=== PATIENT | male | born 1950 | race Caucasian/White ===

== ENCOUNTER → 2018-03-10 | Outpatient (CLI) | payer MEDICARE | LOC: M.WC 13:30 | DX: I70.233 Atherosclerosis of native arteries of right leg with ulceration of ankle (principal); L97.311 Non-pressure chronic ulcer of right ankle limited to breakdown of skin; I70.235 Atherosclerosis of native arteries of right leg with ulceration of other part of foot; L97.511 Non-pressure chronic ulcer of other part of right foot limited to breakdown of skin; I70.243 Atherosclerosis of native arteries of left leg with ulceration of ankle; L97.321 Non-pressure chronic ulcer of left ankle limited to breakdown of skin; I70.245 Atherosclerosis of native arteries of left leg with ulceration of other part of foot; L97.521 Non-pressure chronic ulcer of other part of left foot limited to breakdown of skin; I87.2 Venous insufficiency (chronic) (peripheral); J44.9 Chronic obstructive pulmonary disease, unspecified; M06.9 Rheumatoid arthritis, unspecified; F17.200 Nicotine dependence, unspecified, uncomplicated ==

== ENCOUNTER → 2018-03-17 | Outpatient (CLI) | payer MEDICARE | LOC: M.WC 05:44 | DX: I70.235 Atherosclerosis of native arteries of right leg with ulceration of other part of foot (principal); L97.511 Non-pressure chronic ulcer of other part of right foot limited to breakdown of skin; I70.233 Atherosclerosis of native arteries of right leg with ulceration of ankle; L97.311 Non-pressure chronic ulcer of right ankle limited to breakdown of skin; I70.243 Atherosclerosis of native arteries of left leg with ulceration of ankle; L97.321 Non-pressure chronic ulcer of left ankle limited to breakdown of skin; I70.245 Atherosclerosis of native arteries of left leg with ulceration of other part of foot; L97.521 Non-pressure chronic ulcer of other part of left foot limited to breakdown of skin; I87.2 Venous insufficiency (chronic) (peripheral); E66.9 Obesity, unspecified; J44.9 Chronic obstructive pulmonary disease, unspecified; M06.9 Rheumatoid arthritis, unspecified; F17.200 Nicotine dependence, unspecified, uncomplicated; Z68.23 Body mass index [BMI] 23.0-23.9, adult ==

== ENCOUNTER → 2018-03-24 | Outpatient (CLI) | payer MEDICARE | LOC: M.WC 04:28 | DX: I70.235 Atherosclerosis of native arteries of right leg with ulceration of other part of foot (principal); L97.511 Non-pressure chronic ulcer of other part of right foot limited to breakdown of skin; I70.233 Atherosclerosis of native arteries of right leg with ulceration of ankle; L97.311 Non-pressure chronic ulcer of right ankle limited to breakdown of skin; I70.243 Atherosclerosis of native arteries of left leg with ulceration of ankle; L97.321 Non-pressure chronic ulcer of left ankle limited to breakdown of skin; I70.245 Atherosclerosis of native arteries of left leg with ulceration of other part of foot; L97.521 Non-pressure chronic ulcer of other part of left foot limited to breakdown of skin; E66.9 Obesity, unspecified; I87.2 Venous insufficiency (chronic) (peripheral); J44.9 Chronic obstructive pulmonary disease, unspecified; M06.9 Rheumatoid arthritis, unspecified; F17.200 Nicotine dependence, unspecified, uncomplicated; Z68.23 Body mass index [BMI] 23.0-23.9, adult ==

== ENCOUNTER → 2018-03-29 | Outpatient (CLI) | payer MEDICARE | LOC: M.ULTRA 12:45 | DX: S91.302A Unspecified open wound, left foot, initial encounter (principal); S91.301A Unspecified open wound, right foot, initial encounter; I73.9 Peripheral vascular disease, unspecified; X58.XXXA Exposure to other specified factors, initial encounter; Y93.89 Activity, other specified; Y92.89 Other specified places as the place of occurrence of the external cause; Y99.8 Other external cause status ==

== ENCOUNTER → 2018-03-31 | Outpatient (CLI) | payer MEDICARE | LOC: M.WC 03:03 | DX: I70.235 Atherosclerosis of native arteries of right leg with ulceration of other part of foot (principal); L97.511 Non-pressure chronic ulcer of other part of right foot limited to breakdown of skin; I70.233 Atherosclerosis of native arteries of right leg with ulceration of ankle; L97.311 Non-pressure chronic ulcer of right ankle limited to breakdown of skin; I70.243 Atherosclerosis of native arteries of left leg with ulceration of ankle; L97.321 Non-pressure chronic ulcer of left ankle limited to breakdown of skin; I70.245 Atherosclerosis of native arteries of left leg with ulceration of other part of foot; L97.521 Non-pressure chronic ulcer of other part of left foot limited to breakdown of skin; I87.2 Venous insufficiency (chronic) (peripheral); F17.200 Nicotine dependence, unspecified, uncomplicated; J44.9 Chronic obstructive pulmonary disease, unspecified; M06.9 Rheumatoid arthritis, unspecified ==

== ENCOUNTER → 2018-04-02 | Outpatient (CLI) | payer MEDICARE | LOC: M.WC 03:45 | DX: I70.245 Atherosclerosis of native arteries of left leg with ulceration of other part of foot (principal); L97.521 Non-pressure chronic ulcer of other part of left foot limited to breakdown of skin; I70.243 Atherosclerosis of native arteries of left leg with ulceration of ankle; L97.321 Non-pressure chronic ulcer of left ankle limited to breakdown of skin; I70.233 Atherosclerosis of native arteries of right leg with ulceration of ankle; L97.311 Non-pressure chronic ulcer of right ankle limited to breakdown of skin; I87.2 Venous insufficiency (chronic) (peripheral); J44.9 Chronic obstructive pulmonary disease, unspecified; M06.9 Rheumatoid arthritis, unspecified; F17.200 Nicotine dependence, unspecified, uncomplicated ==

== ENCOUNTER → 2018-04-07 | Outpatient (CLI) | payer MEDICARE | LOC: M.WC 03:12 | DX: I70.235 Atherosclerosis of native arteries of right leg with ulceration of other part of foot (principal); L97.511 Non-pressure chronic ulcer of other part of right foot limited to breakdown of skin; I70.233 Atherosclerosis of native arteries of right leg with ulceration of ankle; L97.311 Non-pressure chronic ulcer of right ankle limited to breakdown of skin; I70.243 Atherosclerosis of native arteries of left leg with ulceration of ankle; L97.321 Non-pressure chronic ulcer of left ankle limited to breakdown of skin; I70.245 Atherosclerosis of native arteries of left leg with ulceration of other part of foot; L97.521 Non-pressure chronic ulcer of other part of left foot limited to breakdown of skin; E66.9 Obesity, unspecified; I87.2 Venous insufficiency (chronic) (peripheral); J44.9 Chronic obstructive pulmonary disease, unspecified; M06.9 Rheumatoid arthritis, unspecified; F17.200 Nicotine dependence, unspecified, uncomplicated; Z68.23 Body mass index [BMI] 23.0-23.9, adult ==

== ENCOUNTER → 2018-04-14 | Outpatient (CLI) | payer MEDICARE | LOC: M.WC 05:06 | DX: I70.235 Atherosclerosis of native arteries of right leg with ulceration of other part of foot (principal); L97.511 Non-pressure chronic ulcer of other part of right foot limited to breakdown of skin; I70.233 Atherosclerosis of native arteries of right leg with ulceration of ankle; L97.311 Non-pressure chronic ulcer of right ankle limited to breakdown of skin; I70.243 Atherosclerosis of native arteries of left leg with ulceration of ankle; L97.321 Non-pressure chronic ulcer of left ankle limited to breakdown of skin; I70.245 Atherosclerosis of native arteries of left leg with ulceration of other part of foot; L97.521 Non-pressure chronic ulcer of other part of left foot limited to breakdown of skin; I87.2 Venous insufficiency (chronic) (peripheral); E66.9 Obesity, unspecified; J44.9 Chronic obstructive pulmonary disease, unspecified; M06.9 Rheumatoid arthritis, unspecified; F17.200 Nicotine dependence, unspecified, uncomplicated; Z68.23 Body mass index [BMI] 23.0-23.9, adult ==

== ENCOUNTER → 2018-04-19 | Outpatient (CLI) | payer MEDICARE | LOC: M.WC 01:02 | DX: I70.233 Atherosclerosis of native arteries of right leg with ulceration of ankle (principal); L97.311 Non-pressure chronic ulcer of right ankle limited to breakdown of skin; I70.235 Atherosclerosis of native arteries of right leg with ulceration of other part of foot; L97.518 Non-pressure chronic ulcer of other part of right foot with other specified severity; I70.243 Atherosclerosis of native arteries of left leg with ulceration of ankle; L97.321 Non-pressure chronic ulcer of left ankle limited to breakdown of skin; I70.245 Atherosclerosis of native arteries of left leg with ulceration of other part of foot; L97.521 Non-pressure chronic ulcer of other part of left foot limited to breakdown of skin; I87.2 Venous insufficiency (chronic) (peripheral); E66.9 Obesity, unspecified; J44.9 Chronic obstructive pulmonary disease, unspecified; M06.9 Rheumatoid arthritis, unspecified; F17.200 Nicotine dependence, unspecified, uncomplicated; Z68.23 Body mass index [BMI] 23.0-23.9, adult ==

== ENCOUNTER → 2018-04-21 | Outpatient (CLI) | payer MEDICARE | LOC: M.WC 05:06 | DX: I70.245 Atherosclerosis of native arteries of left leg with ulceration of other part of foot (principal); L97.521 Non-pressure chronic ulcer of other part of left foot limited to breakdown of skin; L89.892 Pressure ulcer of other site, stage 2; I70.243 Atherosclerosis of native arteries of left leg with ulceration of ankle; L97.321 Non-pressure chronic ulcer of left ankle limited to breakdown of skin; I70.233 Atherosclerosis of native arteries of right leg with ulceration of ankle; L97.311 Non-pressure chronic ulcer of right ankle limited to breakdown of skin; I87.2 Venous insufficiency (chronic) (peripheral); E66.9 Obesity, unspecified; Z68.23 Body mass index [BMI] 23.0-23.9, adult ==

== ENCOUNTER → 2018-04-28 | Outpatient (CLI) | payer MEDICARE | LOC: M.WC 03:23 | DX: I70.243 Atherosclerosis of native arteries of left leg with ulceration of ankle (principal); L97.321 Non-pressure chronic ulcer of left ankle limited to breakdown of skin; I70.233 Atherosclerosis of native arteries of right leg with ulceration of ankle; L97.311 Non-pressure chronic ulcer of right ankle limited to breakdown of skin; I70.245 Atherosclerosis of native arteries of left leg with ulceration of other part of foot; L97.521 Non-pressure chronic ulcer of other part of left foot limited to breakdown of skin; I70.235 Atherosclerosis of native arteries of right leg with ulceration of other part of foot; L97.511 Non-pressure chronic ulcer of other part of right foot limited to breakdown of skin; L89.893 Pressure ulcer of other site, stage 3; I87.2 Venous insufficiency (chronic) (peripheral); E66.9 Obesity, unspecified; J44.9 Chronic obstructive pulmonary disease, unspecified; M06.9 Rheumatoid arthritis, unspecified; Z68.23 Body mass index [BMI] 23.0-23.9, adult ==

== ENCOUNTER → 2018-05-05 | Outpatient (CLI) | payer MEDICARE | LOC: M.WC 04:34 | DX: I70.233 Atherosclerosis of native arteries of right leg with ulceration of ankle (principal); L97.311 Non-pressure chronic ulcer of right ankle limited to breakdown of skin; I70.243 Atherosclerosis of native arteries of left leg with ulceration of ankle; L97.321 Non-pressure chronic ulcer of left ankle limited to breakdown of skin; I70.245 Atherosclerosis of native arteries of left leg with ulceration of other part of foot; L97.521 Non-pressure chronic ulcer of other part of left foot limited to breakdown of skin; L89.893 Pressure ulcer of other site, stage 3; I87.2 Venous insufficiency (chronic) (peripheral); J44.9 Chronic obstructive pulmonary disease, unspecified; M06.9 Rheumatoid arthritis, unspecified; F17.200 Nicotine dependence, unspecified, uncomplicated ==

== ENCOUNTER → 2018-05-12 | Outpatient (CLI) | payer MEDICARE | LOC: M.WC 02:51 | DX: I70.233 Atherosclerosis of native arteries of right leg with ulceration of ankle (principal); L97.311 Non-pressure chronic ulcer of right ankle limited to breakdown of skin; I70.243 Atherosclerosis of native arteries of left leg with ulceration of ankle; L97.321 Non-pressure chronic ulcer of left ankle limited to breakdown of skin; I70.245 Atherosclerosis of native arteries of left leg with ulceration of other part of foot; L97.521 Non-pressure chronic ulcer of other part of left foot limited to breakdown of skin; L89.893 Pressure ulcer of other site, stage 3; E66.9 Obesity, unspecified; I87.2 Venous insufficiency (chronic) (peripheral); J44.9 Chronic obstructive pulmonary disease, unspecified; M06.9 Rheumatoid arthritis, unspecified; F17.200 Nicotine dependence, unspecified, uncomplicated; Z68.23 Body mass index [BMI] 23.0-23.9, adult ==

== ENCOUNTER → 2018-05-19 | Outpatient (CLI) | payer MEDICARE | LOC: M.WC 04:42 | DX: I70.245 Atherosclerosis of native arteries of left leg with ulceration of other part of foot (principal); L97.521 Non-pressure chronic ulcer of other part of left foot limited to breakdown of skin; I70.243 Atherosclerosis of native arteries of left leg with ulceration of ankle; L97.321 Non-pressure chronic ulcer of left ankle limited to breakdown of skin; I70.233 Atherosclerosis of native arteries of right leg with ulceration of ankle; L97.311 Non-pressure chronic ulcer of right ankle limited to breakdown of skin; L89.892 Pressure ulcer of other site, stage 2; I87.2 Venous insufficiency (chronic) (peripheral); J44.9 Chronic obstructive pulmonary disease, unspecified; M06.9 Rheumatoid arthritis, unspecified; F17.200 Nicotine dependence, unspecified, uncomplicated ==

== ENCOUNTER → 2018-06-02 | Outpatient (CLI) | payer MEDICARE | LOC: M.WC 05-26 01:55 | DX: I70.233 Atherosclerosis of native arteries of right leg with ulceration of ankle (principal); L97.311 Non-pressure chronic ulcer of right ankle limited to breakdown of skin; I70.243 Atherosclerosis of native arteries of left leg with ulceration of ankle; L97.322 Non-pressure chronic ulcer of left ankle with fat layer exposed; I70.245 Atherosclerosis of native arteries of left leg with ulceration of other part of foot; L97.522 Non-pressure chronic ulcer of other part of left foot with fat layer exposed; L89.893 Pressure ulcer of other site, stage 3; L97.511 Non-pressure chronic ulcer of other part of right foot limited to breakdown of skin; E66.9 Obesity, unspecified; I87.2 Venous insufficiency (chronic) (peripheral); J44.9 Chronic obstructive pulmonary disease, unspecified; M06.9 Rheumatoid arthritis, unspecified; F17.200 Nicotine dependence, unspecified, uncomplicated; Z68.23 Body mass index [BMI] 23.0-23.9, adult ==

== ENCOUNTER → 2018-06-11 | Day surgery (SDC) | payer MEDICARE, MEDICAID ==
[~2018-06-11] VITALS: Ht 180.3 cm; Wt 88.9 kg
[~2018-06-11] MED LIST: ACCUNEB SO1.25 MG/1 INH; ATORVASTATIN CA40 MG PO; IBUPROFEN 800800 M1 PO; METHOTREXATE 22.5 MG PO; MINOCYCLINE HC100 M2 PO; NEURONTIN600 MG PO; NORCO 5-325 TA1 EACH PO; SYNTHROID25 MC1 PO; TRIAMTERENE-HC1 EAC3 PO; VENTOLIN HFA 1818 GM INH; WELLBUTRIN 75 M75 M1 PO
[2018-06-11 12:19] LABS: ABSOLUTE BASOPHILS 0.1 thou/uL (0.0-0.2); ABSOLUTE EOSINOPHILS 0.7 thou/uL (0.0-0.7); ABSOLUTE MONOCYTES 0.3 thou/uL (0.0-1.2); ABSOLUTE NEUTROPHILS 5.8 thou/uL (1.6-8.1); EOSINOPHILS 9.1 %; HEMATOCRIT 27.8 % (42.0-52.0); HEMOGLOBIN 8.7 gm/dL (14.0-18.0); LYMPHOCYTES 12.7 %; MCH 23.8 pg (26.0-34.0); MCHC 31.3 g/dL (28.0-37.0); MCV 76.1 fL (80.0-100.0); MONOCYTES 4.1 %; MPV 7.4 fl. (7.2-11.1); NUCLEATED RBCS 0 /100WBC; PLATELET COUNT* 242 thou/uL (150-400); POLYS 73.1 %; RBC 3.66 mil/uL (4.50-6.00); RDW-CV 26.1 % (10.5-14.5)
[2018-06-11 12:29] LABS: CALCIUM 8.3 mg/dL (8.5-10.1); CREATININE 1.3 mg/dL (0.6-1.3); POTASSIUM 3.9 mmol/L (3.5-5.1)
[2018-06-11 12:37] VITALS: BP 113/67
[2018-06-11 12:37] LABS: ANISOCYTOSIS 2+; OVALOCYTES 1+; TARGET CELLS 1+
[2018-06-11 14:15] VITALS: BP 113/67
--- NOTE | 2018-06-11 14:25 | OP ---
[facility] [address] [place] [address] OPERATIVE REPORT Name: SUGAR JAIME Room: [facility]#: [id number] Admission: 06/11/18 Attend Phys: Galo Segura DO Discharge: Date of : 46 Report #: [id number] THIS REPORT FOR: //name// CC: Galo MOJICA unknown DATE OF SERVICE: 06/11/2018 PREOPERATIVE DIAGNOSIS: Bilateral lower extremity venous insufficiency with venous ulcerations. POSTOPERATIVE DIAGNOSIS: Bilateral lower extremity venous insufficiency with venous ulcerations. PROCEDURE: Excisional debridement of the bilateral lower extremity wounds down to and including subcutaneous tissue, greater than 20 cm2 in total. SURGEON: Galo Segura DO. MEDICAL IMAGING TECH: None. ANESTHESIA: LMA. ESTIMATED BLOOD LOSS: 25 mL. FLUIDS: Less than 100 crystalloid. URINE OUTPUT: None. SPECIMENS: None. COMPLICATIONS: None. FINDINGS: The patient has had significant bilateral lower extremity venous wounds that are covered with significant amount of bioburden slough. Skin was pretty macerated. Thus, they cleaned up well down to good healthy bleeding tissue. This was tolerated well. CLINICAL HISTORY: The patient is a 68-year-old man with known venous insufficiency with nonhealing bilateral lower extremity wounds. He could not tolerate debridement [facility] and was recommended to be taken to the OR for debridement. DETAILS OF PROCEDURE: After informed consent was obtained, the patient taken to the operating room and placed on the OR by the supine position. He was administered LMA anesthesia by anesthesia team. The bilateral lower extremities [address] [address] OPERATIVE REPORT Name: YENISUGAR E Room: [facility]#: [id number] Admission: 06/11/18 Attend Phys: Galo Segura DO Discharge: Date of : 46 Report #: [id number] were prepped and draped in the usual sterile fashion. Full timeout performed identifying correct patient and procedure. Next, using a curette, first the right medial malleolar wound that measured 1 x 1 cm in diameter was debrided of fibrinous debris and slough down to and including subcutaneous tissue. The right first and second toe wounds measured about 1 x 2.5 cm in length was again debrided with a curette down to and including subcutaneous tissues, debrided all the fibrinous debris and slough. I then turned my attention to the left ankle. The medial wound measured about 3.5 x 2.5, again used curette to debride down to and including subcutaneous tissues, the fibrinous debris and slough. The left first, second and third toe wounds in total measured about 3.5 x 2 cm in dimension. Again debrided this down to and including subcutaneous tissues, debrided the fibrinous debris and slough and then turned my attention to the lateral ankle wound, left ankle wound that measured about again 2.5 x 3.5, again debrided this fibrinous debris and slough down to and including subcutaneous tissue with a curette as well. There is excellent bleeding noted. This was controlled with direct pressure. The wounds looked much improved post-debridement. The wounds were then cleansed with saline solution. The wounds were dressed with Aquacel, 4 x 4s, ABD, Kerlix and Andrew wraps. He tolerated the procedure well and transferred to recovery in stable condition. <ELECTRONICALLY SIGNED> By: Galo Segura DO 06/11/18 1425 1340 [id number] Segura DO /nt
--- NOTE | 2018-06-11 15:51 | EKG ---
[place] [address] ELECTROCARDIOGRAM REPORT Name: SUGAR JAIME Room: [employer]#: [id number] Admission: 06/11/18 Attend Phys: Galo Segura DO Discharge: Date of : 46 Report #: [id number] THIS REPORT FOR: //name// [facility] Test Date: 2018-06-11 Test Time: 12:04:57 Pat Name: SUGAR JAIME Department: Room: Gender: [employer] Project Manager: : 1950 Requested By: Galo Segura Order Number: [id number] Audrey MD: Jorge Stephenson Measurements Intervals [place] Rate: 79 P: -18 MO: 149 QRS: 6 QRSD: 91 T: 27 QT: 402 QTc: 461 Interpretive Statements Sinus rhythm Borderline low voltage, extremity leads No previous ECG available for comparison Electronically Signed On 06-11-2018 15:50:57 [employer] by Jorge Stephenson [email or web address] <ELECTRONICALLY SIGNED> By: Jorge Stephenson MD, [facility] 06/11/18 1550 1204 1204 Jorge Stephenson MD, FACC /EPI
== END | disposition home or self-care (01) ==
LOC: M.SUR
PROVIDERS: Surgery
DX: I87.2 Venous insufficiency (chronic) (peripheral) (principal); L97.529 Non-pressure chronic ulcer of other part of left foot with unspecified severity; L97.819 Non-pressure chronic ulcer of other part of right lower leg with unspecified severity; Z98.890 Other specified postprocedural states; Z88.8 Allergy status to other drugs, medicaments and biological substances; Z79.899 Other long term (current) drug therapy

== ENCOUNTER → 2018-06-16 | Outpatient (CLI) | payer MEDICARE | LOC: M.WC 06-09 10:00 | DX: I70.233 Atherosclerosis of native arteries of right leg with ulceration of ankle (principal); L97.312 Non-pressure chronic ulcer of right ankle with fat layer exposed; I70.243 Atherosclerosis of native arteries of left leg with ulceration of ankle; L97.322 Non-pressure chronic ulcer of left ankle with fat layer exposed; I70.245 Atherosclerosis of native arteries of left leg with ulceration of other part of foot; L97.522 Non-pressure chronic ulcer of other part of left foot with fat layer exposed; L89.893 Pressure ulcer of other site, stage 3; L97.512 Non-pressure chronic ulcer of other part of right foot with fat layer exposed; I87.2 Venous insufficiency (chronic) (peripheral); E66.9 Obesity, unspecified; M06.9 Rheumatoid arthritis, unspecified; J44.9 Chronic obstructive pulmonary disease, unspecified; F17.200 Nicotine dependence, unspecified, uncomplicated; Z68.23 Body mass index [BMI] 23.0-23.9, adult ==

== ENCOUNTER → 2018-06-23 | Outpatient (CLI) | payer MEDICARE | LOC: M.WC 04:55 | DX: I70.233 Atherosclerosis of native arteries of right leg with ulceration of ankle (principal); L97.312 Non-pressure chronic ulcer of right ankle with fat layer exposed; I70.243 Atherosclerosis of native arteries of left leg with ulceration of ankle; L97.322 Non-pressure chronic ulcer of left ankle with fat layer exposed; I70.245 Atherosclerosis of native arteries of left leg with ulceration of other part of foot; L97.522 Non-pressure chronic ulcer of other part of left foot with fat layer exposed; L97.512 Non-pressure chronic ulcer of other part of right foot with fat layer exposed; L89.893 Pressure ulcer of other site, stage 3; E66.9 Obesity, unspecified; I87.2 Venous insufficiency (chronic) (peripheral); J44.9 Chronic obstructive pulmonary disease, unspecified; M06.9 Rheumatoid arthritis, unspecified; F17.200 Nicotine dependence, unspecified, uncomplicated; Z68.23 Body mass index [BMI] 23.0-23.9, adult ==

== ENCOUNTER → 2018-08-16 | Outpatient (CLI) | payer MEDICARE | LOC: M.WC 10:00 | DX: L97.511 Non-pressure chronic ulcer of other part of right foot limited to breakdown of skin (principal); L97.311 Non-pressure chronic ulcer of right ankle limited to breakdown of skin; L97.521 Non-pressure chronic ulcer of other part of left foot limited to breakdown of skin; L97.321 Non-pressure chronic ulcer of left ankle limited to breakdown of skin; I87.2 Venous insufficiency (chronic) (peripheral); I73.9 Peripheral vascular disease, unspecified; J44.9 Chronic obstructive pulmonary disease, unspecified; M06.9 Rheumatoid arthritis, unspecified; F17.200 Nicotine dependence, unspecified, uncomplicated ==

== ENCOUNTER → 2018-08-23 | Outpatient (CLI) | payer MEDICARE | LOC: M.WC 01:07 | DX: L97.511 Non-pressure chronic ulcer of other part of right foot limited to breakdown of skin (principal); L97.311 Non-pressure chronic ulcer of right ankle limited to breakdown of skin; L97.521 Non-pressure chronic ulcer of other part of left foot limited to breakdown of skin; L97.321 Non-pressure chronic ulcer of left ankle limited to breakdown of skin; I87.2 Venous insufficiency (chronic) (peripheral); I73.9 Peripheral vascular disease, unspecified; J44.9 Chronic obstructive pulmonary disease, unspecified; M06.9 Rheumatoid arthritis, unspecified; F17.200 Nicotine dependence, unspecified, uncomplicated ==

== ENCOUNTER 2018-08-30 12:15 | Inpatient (IN) | payer MEDICARE, MEDICAID ==
[~2018-08-30] VITALS: Ht 182.9 cm; Wt 73.9 kg
[~2018-08-30 12:15] MED LIST changes: -IRON325 M1 PO; -ZYLOPRIM300 MG PO
[2018-08-30 16:38] VITALS: BP 137/68
[2018-08-30 18:05] LABS: HEMATOCRIT 33.8 % (42.0-52.0); HEMOGLOBIN 10.3 gm/dL (14.0-18.0); MCH 23.8 pg (26.0-34.0); MCHC 30.6 g/dL (28.0-37.0); MPV 8.1 fl. (7.2-11.1); RBC 4.34 mil/uL (4.50-6.00); RDW-CV 23.8 % (10.5-14.5); WBC 11.8 thou/uL (4.0-11.0)
[2018-08-30 18:15] LABS: INR 1.1; PROTIME 11.6 Seconds (9.20-11.50)
[2018-08-30 18:24] LABS: ALBUMIN 2.5 g/dL (3.4-5.0); CALCIUM 9.1 mg/dL (8.5-10.1); CREATININE 1.9 mg/dL (0.6-1.3); POTASSIUM 3.2 mmol/L (3.5-5.1); TOTAL BILIRUBIN 0.3 mg/dL (<0.1-1.0); TOTAL PROTEIN 8.2 g/dL (6.4-8.2)
[2018-08-30] MEDS ORDERED: ZYLOPRIM300 MG PO (19:09)
[2018-08-31] VITALS: BP 132/73
[2018-08-31 04:27] LABS: ABSOLUTE BASOPHILS 0.1 thou/uL (0.0-0.2); ABSOLUTE EOSINOPHILS 0.1 thou/uL (0.0-0.7); ABSOLUTE LYMPHOCYTES 1.4 thou/uL (0.8-5.3); BASOPHILS 0.9 %; EOSINOPHILS 1.3 %; HEMATOCRIT 30.7 % (42.0-52.0); HEMOGLOBIN 9.3 gm/dL (14.0-18.0); LYMPHOCYTES 14.3 %; MCH 23.4 pg (26.0-34.0); MCHC 30.3 g/dL (28.0-37.0); MCV 77.3 fL (80.0-100.0); MONOCYTES 10.3 %; MPV 8.4 fl. (7.2-11.1); NUCLEATED RBCS 0 /100WBC; PLATELET COUNT* 335 thou/uL (150-400); POLYS 73.2 %; RBC 3.97 mil/uL (4.50-6.00); RDW-CV 23.2 % (10.5-14.5); WBC 9.6 thou/uL (4.0-11.0)
[2018-08-31 04:38] LABS: CALCIUM 8.5 mg/dL (8.5-10.1); CREATININE 1.7 mg/dL (0.6-1.3); MAGNESIUM 1.8 mg/dL (1.8-2.4)
[2018-08-31 04:59] LABS: POTASSIUM 4.5 mmol/L (3.5-5.1)
[2018-08-31 06:57] LABS: ANISOCYTOSIS 2+; HYPOCHROMASIA 1+
[2018-08-31 07:32] VITALS: BP 115/63
[2018-08-31 08:00] VITALS: BP 115/63
[2018-08-31 12:06] VITALS: BP 111/68
--- NOTE | 2018-08-31 12:07 | 2DMMODE ---
[place] [address] 2 D/M-MODE ECHOCARDIOGRAM Name: SUGAR JAIME Room: [address] IN [facility]#: [id number] Admission: 08/30/18 Attend Phys: Beto Roman, Discharge: Date of : 46 Date of Service: 08/31/18 1207 Report #: [id number] THIS REPORT FOR: //name// APPROVED REPORT Study performed: 08/31/2018 10:53:06 EXAM: Comprehensive 2D, Doppler, and color-flow Echocardiogram Patient Location: In-Patient Room #: [facility] Status: routine BSA: 1.95 HR: 79 bpm BP: 115/63 mmHg Rhythm: NSR Other Information Technically limited study due to poor parasternal windows. Indications Congestive Heart Failure Volumes Left Atrial Volume (Systole) LA ESV Index: 14.40 mL/m2 Aortic Valve AoV Peak Shin.: 1.66 m/s AO Peak Gr.: 11.05 mmHg LVOT Max P.25 mmHg AO Mean Gr.: 6.25 mmHg LVOT Mean P.69 mmHg LVOT Max V: 1.68 m/s AO V2 VTI: 30.42 cm LVOT Mean V: 1.10 m/s LVOT V1 VTI: 29.90 cm Mitral Valve E/A Ratio: 1.25 MV Decel. Time: 165.76 ms MV E Max Shin.: 0.82 m/s MV PHT: 48.07 ms MVA (PHT): 4.58 cm2 TDI E/Lateral E': 6.31 E/Medial E': 5.13 Medial E' Shin.: 0.16 m/[place] [address] 2 D/M-MODE ECHOCARDIOGRAM Name: SUGAR JAIME Room: [address] M.R.#: [id number] Admission: 08/30/18 Attend Phys: Beto Roman, Discharge: Date of : 46 Date of Service: 08/31/18 1207 Report #: [id number] Lateral E' Shin.: 0.13 m/s Left Ventricle The left ventricle is normal size. There is normal LV segmental wall motion. There is normal left ventricular wall thickness. Left ventricular systolic function is normal. The left ventricular ejection fraction is within the normal range. LVEF is 60-65%. Mild diastolic dysfunction is present (impaired relaxation pattern). Right Ventricle The right ventricle is normal size. The right ventricular systolic function is normal. Atria The left atrium size is normal. The right atrium size is normal. Aortic Valve The aortic valve is normal in structure. No aortic regurgitation is present. There is no aortic valvular stenosis. Mitral Valve The mitral valve is normal in structure. There is no mitral valve regurgitation noted. No evidence of mitral valve stenosis. Tricuspid Valve The tricuspid valve is normal in structure. Trace tricuspid regurgitation. Pulmonic Valve The pulmonary valve is normal in structure. There is no pulmonic valvular regurgitation. Great Vessels The aortic root is normal in size. IVC is normal in size and collapses >50% with inspiration. Pericardium There is no pericardial effusion. <Conclusion> LVEF is 60-65%. There is normal LV segmental wall motion. There is no aortic valvular stenosis. No aortic [place] [address] 2 D/M-MODE ECHOCARDIOGRAM Name: SUGAR JAIME Room: [address] [place] .R.#: [id number] Admission: 08/30/18 Attend Phys: Beto Roman, Discharge: Date of : 46 Date of Service: 08/31/181206 Report #: [id number] No evidence of mitral valve stenosis. There is no mitral valve regurgitation noted. Mild diastolic dysfunction is present (impaired relaxation pattern). Trace tricuspid regurgitation. No vegetations seen <ELECTRONICALLY SIGNED> By: Ketan Guzmán MD, [facility] 08/31/18 120 06 1207 Ketan Guzmán MD, FACC /INF
[2018-08-31 12:57] LABS: URINE BILIRUBIN NEGATIVE (Negative); URINE BLOOD NEGATIVE (Negative); URINE CLARITY CLEAR; URINE COLOR YELLOW; URINE GLUCOSE-RANDOM NEGATIVE (Negative); URINE KETONES NEGATIVE (Negative); URINE LEUKOCYTES-REFLEX NEGATIVE (Negative); URINE NITRITE-REFLEX NEGATIVE (Negative); URINE PROTEIN NEGATIVE (Negative); URINE SPECIFIC GRAVITY 1.025 (1.005-1.030)
[2018-08-31 17:27] VITALS: BP 122/57
[2018-08-31 20:50] VITALS: BP 122/63
[2018-08-31 23:10] LABS: GLYCOHEMOGLOBIN (HGB A1C) 6.2 % (4.8-5.6)
[2018-09-01 04:13] LABS: HEMATOCRIT 28.2 % (42.0-52.0); HEMOGLOBIN 8.6 gm/dL (14.0-18.0); MCH 23.9 pg (26.0-34.0); MCHC 30.6 g/dL (28.0-37.0); MCV 78.1 fL (80.0-100.0); MPV 8.2 fl. (7.2-11.1); NUCLEATED RBCS 0 /100WBC; PLATELET COUNT* 323 thou/uL (150-400); RBC 3.61 mil/uL (4.50-6.00); RDW-CV 23.5 % (10.5-14.5); WBC 5.6 thou/uL (4.0-11.0)
[2018-09-01 04:27] LABS: CALCIUM 8.2 mg/dL (8.5-10.1); CREATININE 1.3 mg/dL (0.6-1.3); POTASSIUM 4.6 mmol/L (3.5-5.1)
[2018-09-01 06:28] LABS: ABSOLUTE BASOPHILS 0.1 thou/uL (0.0-0.2); ABSOLUTE EOSINOPHILS 0.6 thou/uL (0.0-0.7); ABSOLUTE LYMPHOCYTES 1.1 thou/uL (0.8-5.3); ABSOLUTE MONOCYTES 0.2 thou/uL (0.0-1.2); ABSOLUTE NEUTROPHILS 3.7 thou/uL (1.6-8.1); ANISOCYTOSIS 1+; PLATELET ESTIMATE ADEQUATE; POIKILOCYTOSIS 1+
[2018-09-01 06:29] LABS: HYPOCHROMASIA 1+; OVALOCYTES Occasional
[2018-09-01 08:20] VITALS: BP 108/54
--- NOTE | 2018-09-01 12:07 | CON ---
[facility] [address] [place] [address] CONSULTATION Name: SUGAR JAIME Room: [address] M.R.#: [id number] Admission: 08/30/18 Attend Phys: Beto Roman MD Discharge: Date of : 46 Report #: [id number] THIS REPORT FOR: //name// CC: Beto Roman Yusuf Lopez [facility] DATE OF SERVICE: 08/31/2018 INFECTIOUS DISEASE CONSULTATION ATTENDING PHYSICIAN: Beto Roman M.D. REASON FOR EVALUATION: Bilateral lower extremity inflammatory eruptions, likely multifactorial, including a component of skin and soft tissue infection and does have multiple ulcers as well. HISTORY OF PRESENT ILLNESS: Chart reviewed, the patient examined. This is a 68-year-old gentleman with severe rheumatoid arthritis, who takes methotrexate. He has had corticosteroids in the past, also has prediabetes, who has issues with bilateral lower extremity ulcers. This has been waxing and waning in course. He is able to heal them only to have breakdown. He tends to get significant swelling, which contributes. Over the course of the last month, he had increasing pain. He was evaluated. Vascular studies were otherwise unremarkable. He was treated as an outpatient with antibiotics, without improvement. Due to the severity of his pain, he was resistant to have recommended debridements of his wounds. As a results, he was admitted to undergo more intensive treatment. Review of cultures show polymicrobial growth including Pseudomonas aeruginosa and Enterococcus and Leclercia species as well, which is moderately resistant or susceptible to quinolones, aminoglycoside, Tetracycline and carbapenems. ALLERGIES: CODEINE. CURRENT MEDICATIONS: Include meropenem, pantoprazole, zinc gluconate, clopidogrel, allopurinol, vancomycin, gabapentin, ascorbic acid, celecoxib, atorvastatin, tramadol, acetaminophen as needed and albuterol and ipratropium inhaler. PAST MEDICAL HISTORY: As noted above, history of rheumatoid arthritis, hypothyroidism, hypertension, recurrent ulcers of the lower extremities, venous stasis insufficiency with dermatitis, anemia of chronic disease, reflux and history of depression. SOCIAL HISTORY: Methamphetamine use, smokes cigarettes, [place] [address] CONSULTATION Name: SUGAR JAIME Room: [address]#: [id number] Admission: 08/30/18 Attend Phys: Beto Roman MD Discharge: Date of : 46 Report #: [id number] FAMILY HISTORY: Noncontributory. REVIEW OF SYSTEMS: Denies any recent weight loss, has poor dentition. Pulmonary status has been otherwise stable. Denies any significant GI-related distress. He has had anorexia recently, although generally, he has a good appetite. He normally has constipation. Otherwise, 10-point review of systems is unremarkable, with the exception noted in the above history of present illness. PHYSICAL EXAMINATION: GENERAL: He appears somewhat chronically ill. He is pleasant, alert and cooperative. He is in [id number] distress, appears undernourished. VITAL SIGNS: Temperature 97.8, pulse 87, respirations 16 and blood pressure 111/68. SKIN: Warm, dry. HEENT: Normocephalic. Extraocular muscles intact. NECK: Supple. LUNGS: Diminished breath sounds. HEART: Regular. I do not appreciate a murmur. ABDOMEN: Soft, nontender and nondistended. EXTREMITIES: Bilateral lower extremities have compression dressings. These were left intact. Discussed with wound care, nurse will change dressings tomorrow. I will try to be present. GENITOURINARY: Deferred. RECTAL: Deferred. LABORATORY DATA: Echo, EF of 60% to 65%. No significant valvular abnormalities, no vegetations. Arterial Dopplers of the lower extremity show no significant arterial occlusive disease. Blood cultures are sterile thus far. CBC: White count of 9.6, H and H 9.3 and 30.7 and platelets of 335,000. Prealbumin of 11.0. Electrolytes: Sodium 142, potassium 4.5, chloride 106, bicarb is 26, anion gap of 10 and BUN and creatinine 23 and 1.7. Lactic acid 2.0. Liver functions unremarkable. Albumin of 2.5. Total protein is 8.2. Chest x-ray showed no acute process, some chronic changes. ASSESSMENT AND PLAN: Bilateral lower extremity inflammatory eruption. It is likely multifactorial. We will continue antimicrobial therapy based on previous culture results from the [facility]. Wound care dressing changes as prescribed. I did discuss with the patient's family in detail. <ELECTRONICALLY SIGNED> By: Yusuf Lindsey MD 09/01/18 1207 1225 [id number] Lindsey MD /nt
[2018-09-01 16:12] VITALS: BP 134/76
[2018-09-01 23:39] VITALS: BP 96/55
[2018-09-02 08:52] LABS: CALCIUM 8.7 mg/dL (8.5-10.1); CREATININE 1.3 mg/dL (0.6-1.3); POTASSIUM 3.9 mmol/L (3.5-5.1)
[2018-09-02 09:07] VITALS: BP 101/61
[2018-09-02 15:08] LABS: GLOBULIN TOTAL 3.9 g/dL (2.2-3.9); M-SPIKE Not Observed g/dL (Not Observed)
[2018-09-02 17:42] VITALS: BP 111/54
[2018-09-03 00:14] VITALS: BP 91/46
[2018-09-03 05:07] LABS: ABSOLUTE BASOPHILS 0.1 thou/uL (0.0-0.2); ABSOLUTE EOSINOPHILS 0.9 thou/uL (0.0-0.7); ABSOLUTE LYMPHOCYTES 1.4 thou/uL (0.8-5.3); ABSOLUTE MONOCYTES 0.4 thou/uL (0.0-1.2); ABSOLUTE NEUTROPHILS 4.5 thou/uL (1.6-8.1); EOSINOPHILS 12.6 %; HEMATOCRIT 27.9 % (42.0-52.0); HEMOGLOBIN 8.6 gm/dL (14.0-18.0); LYMPHOCYTES 18.8 %; MCH 24.1 pg (26.0-34.0); MCHC 30.9 g/dL (28.0-37.0); MCV 77.8 fL (80.0-100.0); MONOCYTES 5.6 %; MPV 8.2 fl. (7.2-11.1); NUCLEATED RBCS 0 /100WBC; PLATELET COUNT* 347 thou/uL (150-400); RBC 3.59 mil/uL (4.50-6.00); RDW-CV 23.6 % (10.5-14.5); WBC 7.3 thou/uL (4.0-11.0)
[2018-09-03 05:23] LABS: CALCIUM 8.2 mg/dL (8.5-10.1); CREATININE 1.2 mg/dL (0.6-1.3); POTASSIUM 4.1 mmol/L (3.5-5.1)
[2018-09-03 08:00] VITALS: BP 104/61
[2018-09-03 15:00] VITALS: BP 90/71
[2018-09-03 23:00] VITALS: BP 111/51
[2018-09-04 08:00] VITALS: BP 109/63
[2018-09-04 17:02] VITALS: BP 95/43
[2018-09-04 19:40] VITALS: BP 108/59
[2018-09-05 08:15] VITALS: BP 99/54
[2018-09-05 16:37] VITALS: BP 110/54
[2018-09-05 19:45] VITALS: BP 100/55
[2018-09-06 08:15] VITALS: BP 105/54
[2018-09-06 12:54] LABS: HEMOGLOBIN 8.7 gm/dL (14.0-18.0); MCH 24.7 pg (26.0-34.0); MCHC 31.1 g/dL (28.0-37.0); MCV 79.2 fL (80.0-100.0); MPV 7.8 fl. (7.2-11.1); NUCLEATED RBCS 0 /100WBC; PLATELET COUNT* 311 thou/uL (150-400); RBC 3.54 mil/uL (4.50-6.00); RDW-CV 24.1 % (10.5-14.5)
[2018-09-06 13:16] LABS: ABSOLUTE EOSINOPHILS 0.6 thou/uL (0.0-0.7); ABSOLUTE LYMPHOCYTES 1.1 thou/uL (0.8-5.3); ABSOLUTE MONOCYTES 0.4 thou/uL (0.0-1.2); ABSOLUTE NEUTROPHILS 4.8 thou/uL (1.6-8.1); ANISOCYTOSIS 2+; HYPOCHROMASIA 1+; PLATELET ESTIMATE ADEQUATE
[2018-09-06 13:20] LABS: CALCIUM 8.2 mg/dL (8.5-10.1); CREATININE 1.2 mg/dL (0.6-1.3); POTASSIUM 4.4 mmol/L (3.5-5.1)
[2018-09-06 18:56] VITALS: BP 87/53
[2018-09-06 19:30] VITALS: BP 138/51
[2018-09-07 09:15] VITALS: BP 114/65
[2018-09-07 12:55] VITALS: BP 114/65
[2018-09-07] MEDS ORDERED: AMPICILLIN TRI250 MG PO (13:58)
[2018-09-07] MEDS ORDERED: CIPRO500 MG PO (13:58)
[2018-09-07] MEDS ORDERED: CELEBREX 200 M200 M1 PO (13:59)
[2018-09-07] MEDS ORDERED: HYDROCODONE-AP1 EAC6 PO (13:59)
[2018-09-07] MEDS ORDERED: PLAVIX 75 MG TA75 MG PO (13:59)
[2018-09-07] MEDS ORDERED: NEXIUM40 MG PO (14:00)
[2018-09-07] MEDS ORDERED: TRAMADOL 50 MG50 MG PO (14:00)
[2018-09-07] MEDS ORDERED: VITAMINC500 PO (14:01)
[2018-09-07] MEDS ORDERED: LIDOCAINE 2%2 %/5 GM TOP (14:01)
[2018-09-07] MEDS ORDERED: THERA M PLUS T1 EAC2 PO (14:01)
[2018-09-07] MEDS ORDERED: TYLENOL325 MG PO (14:02)
[2018-09-07] MEDS ORDERED: IRON325 M1 PO (14:30)
[2018-09-07 15:56] VITALS: BP 135/61
[2018-09-08] VITALS: BP 105/57
[2018-09-08 07:50] VITALS: BP 120/62
[2018-09-08 08:20] VITALS: BP 120/62
[2018-09-08] MEDS ORDERED: AMOXICILLIN 50500 MG PO (09:52)
== END 2018-09-08 10:45 | DRG 871 ==
LOC: M.TBA 12:15 → M.3W 16:24
PROVIDERS: Family Medicine; Specialist; ADMIT Internal Medicine
PROC: 05HY33Z Insertion of Infusion Device into Upper Vein, Percutaneous Approach (ICD-10-PCS; principal; 2018-09-01)
DX: A41.9 Sepsis, unspecified organism (principal); N17.0 Acute kidney failure with tubular necrosis; L03.116 Cellulitis of left lower limb; L03.115 Cellulitis of right lower limb; I13.0 Hypertensive heart and chronic kidney disease with heart failure and stage 1 through stage 4 chronic kidney disease, or unspecified chronic kidney disease; I50.32 Chronic diastolic (congestive) heart failure; Z66 Do not resuscitate; M06.9 Rheumatoid arthritis, unspecified; E03.9 Hypothyroidism, unspecified; F32.9 Major depressive disorder, single episode, unspecified; K21.9 Gastro-esophageal reflux disease without esophagitis; Z79.891 Long term (current) use of opiate analgesic; F17.210 Nicotine dependence, cigarettes, uncomplicated; I87.8 Other specified disorders of veins; J44.9 Chronic obstructive pulmonary disease, unspecified; I87.2 Venous insufficiency (chronic) (peripheral); N18.3 Chronic kidney disease, stage 3 (moderate); D63.8 Anemia in other chronic diseases classified elsewhere; D50.9 Iron deficiency anemia, unspecified; B37.9 Candidiasis, unspecified; I73.9 Peripheral vascular disease, unspecified; R73.03 Prediabetes; Z71.6 Tobacco abuse counseling; Z79.899 Other long term (current) drug therapy; Z88.5 Allergy status to narcotic agent

== ENCOUNTER → 2018-08-30 | Outpatient (CLI) | payer MEDICARE ==
[~2018-08-30] MED LIST changes: +IRON325 M1 PO; +ZYLOPRIM300 MG PO
== END ==
LOC: M.WC 00:59
DX: L97.511 Non-pressure chronic ulcer of other part of right foot limited to breakdown of skin (principal); L97.311 Non-pressure chronic ulcer of right ankle limited to breakdown of skin; L97.521 Non-pressure chronic ulcer of other part of left foot limited to breakdown of skin; L97.321 Non-pressure chronic ulcer of left ankle limited to breakdown of skin; I87.2 Venous insufficiency (chronic) (peripheral); I73.9 Peripheral vascular disease, unspecified; J44.9 Chronic obstructive pulmonary disease, unspecified; M06.9 Rheumatoid arthritis, unspecified; F17.200 Nicotine dependence, unspecified, uncomplicated

== ENCOUNTER → 2018-09-27 | Outpatient (CLI) | payer MEDICARE ==
[~2018-09-27] MED LIST changes: +AMOXICILLIN 50500 MG PO; +AMPICILLIN TRI250 MG PO; +CELEBREX 200 M200 M1 PO; +CIPRO500 MG PO; +HYDROCODONE-AP1 EAC6 PO; +IRON325 M1 PO; +LIDOCAINE 2%2 %/5 GM TOP; +NEXIUM40 MG PO; +PLAVIX 75 MG TA75 MG PO; +THERA M PLUS T1 EAC2 PO; +TRAMADOL 50 MG50 MG PO; +TYLENOL325 MG PO; +VITAMINC500 PO; +ZYLOPRIM300 MG PO
== END ==
LOC: M.WC 09-13 02:55
DX: L97.512 Non-pressure chronic ulcer of other part of right foot with fat layer exposed (principal); L97.522 Non-pressure chronic ulcer of other part of left foot with fat layer exposed; L97.322 Non-pressure chronic ulcer of left ankle with fat layer exposed; I87.2 Venous insufficiency (chronic) (peripheral); I73.9 Peripheral vascular disease, unspecified; J44.9 Chronic obstructive pulmonary disease, unspecified; M06.9 Rheumatoid arthritis, unspecified; F17.200 Nicotine dependence, unspecified, uncomplicated

== ENCOUNTER → 2018-10-13 | Outpatient (CLI) | payer MEDICARE | LOC: M.WC 05:19 | DX: L97.512 Non-pressure chronic ulcer of other part of right foot with fat layer exposed (principal); L97.522 Non-pressure chronic ulcer of other part of left foot with fat layer exposed; L97.322 Non-pressure chronic ulcer of left ankle with fat layer exposed; L89.893 Pressure ulcer of other site, stage 3; I87.2 Venous insufficiency (chronic) (peripheral); I73.9 Peripheral vascular disease, unspecified; J44.9 Chronic obstructive pulmonary disease, unspecified; M06.9 Rheumatoid arthritis, unspecified; F17.200 Nicotine dependence, unspecified, uncomplicated ==

== ENCOUNTER → 2018-10-20 | Outpatient (CLI) | payer MEDICARE | LOC: M.WC 08:02 | DX: L97.521 Non-pressure chronic ulcer of other part of left foot limited to breakdown of skin (principal); L97.511 Non-pressure chronic ulcer of other part of right foot limited to breakdown of skin; L97.321 Non-pressure chronic ulcer of left ankle limited to breakdown of skin; I87.2 Venous insufficiency (chronic) (peripheral); I73.9 Peripheral vascular disease, unspecified; L89.893 Pressure ulcer of other site, stage 3; J44.9 Chronic obstructive pulmonary disease, unspecified; M06.9 Rheumatoid arthritis, unspecified; F17.200 Nicotine dependence, unspecified, uncomplicated ==

== ENCOUNTER → 2018-10-27 | Outpatient (CLI) | payer MEDICARE | LOC: M.WC 04:52 | DX: L97.511 Non-pressure chronic ulcer of other part of right foot limited to breakdown of skin (principal); L97.521 Non-pressure chronic ulcer of other part of left foot limited to breakdown of skin; L97.322 Non-pressure chronic ulcer of left ankle with fat layer exposed; L89.893 Pressure ulcer of other site, stage 3; I87.2 Venous insufficiency (chronic) (peripheral); I73.9 Peripheral vascular disease, unspecified; J44.9 Chronic obstructive pulmonary disease, unspecified; F17.200 Nicotine dependence, unspecified, uncomplicated; M06.9 Rheumatoid arthritis, unspecified ==

== ENCOUNTER → 2018-11-03 | Outpatient (CLI) | payer MEDICARE | LOC: M.WC 05:07 | DX: L97.511 Non-pressure chronic ulcer of other part of right foot limited to breakdown of skin (principal); L97.522 Non-pressure chronic ulcer of other part of left foot with fat layer exposed; L97.321 Non-pressure chronic ulcer of left ankle limited to breakdown of skin; L89.893 Pressure ulcer of other site, stage 3; I87.2 Venous insufficiency (chronic) (peripheral); I73.9 Peripheral vascular disease, unspecified; J44.9 Chronic obstructive pulmonary disease, unspecified; M06.9 Rheumatoid arthritis, unspecified; F17.200 Nicotine dependence, unspecified, uncomplicated ==